=== PATIENT | male | born 1975 | race Caucasian/White ===

== ENCOUNTER 2025-08-19 15:53 | Emergency (ER) | payer OTHER, SELFPAY ==
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
[2025-08-19 16:10] VITALS: BP 132/76; BP 144/86; PULSE 61; PULSE 62; RESP 16; TEMP 36.4; O2SAT 97; O2SAT 98; BMI 24.3
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
[2025-08-19 17:47] VITALS: BP 125/72; PULSE 57; RESP 16; O2SAT 95
[2025-08-19 18:41] VITALS: BP 125/72; PULSE 57; RESP 16; TEMP 36.6; O2SAT 95
== END 2025-08-19 18:42 | disposition home or self-care (01) ==
PROVIDERS: Emergency Provider Student in an Organized Health Care Education/Training Program; PCP Nurse Practitioner Family
DX: S16.1XXA Strain of muscle, fascia and tendon at neck level, initial encounter (principal); V43.62XA Car passenger injured in collision with other type car in traffic accident, initial encounter; Y93.89 Activity, other specified; Y92.488 Other paved roadways as the place of occurrence of the external cause; Y99.8 Other external cause status
CPT/HCPCS: 70450; 72125; 99283; 99284

== ENCOUNTER → 2025-08-19 16:58 | Outpatient (BNV) | payer OTHER, SELFPAY | PROVIDERS: Emergency Provider Student in an Organized Health Care Education/Training Program; PCP Nurse Practitioner Family; Visit Provider Radiology Diagnostic Radiology | DX: M54.2 Cervicalgia (principal); S09.90XA Unspecified injury of head, initial encounter; Z04.3 Encounter for examination and observation following other accident | CPT/HCPCS: 70450; 72125 ==